=== PATIENT | male | born 1990 | race Caucasian/White ===

== ENCOUNTER 2018-08-09 00:11 | Emergency (ER) | payer OTHER ==
[2018-08-09 00:15] VITALS: TEMP 98.2
--- NOTE | 2018-08-09 00:40 | XR ---
EXAMINATION TYPE: XR hand complete RT DATE OF EXAM: 08/09/2018 COMPARISON: 10/30/2013 HISTORY: Hand injury and pain TECHNIQUE: 3 views. FINDINGS: There is thickening of the fourth and fifth metacarpals related to old healed fractures. I see no acu te fracture nor dislocation. Joint spaces are fairly normal. There are no erosions. IMPRESSION: No acute abnormality of the right hand. No change.
[2018-08-09 00:52] VITALS: BP 132/82; PULSE 78; RESP 20
--- NOTE | 2018-08-09 01:57 | ED ---
Upper Extremity HPI - General Chief Complaint: Extremity Injury, Upper Stated Complaint: R Hand Injury Time Seen by Provider: 08/09/18 01:34 Source: patient Mode of arrival: ambulatory Limitations: no limitations - History of Present Illness Initial Comments: This patient is 28-year-old man who presents to be evaluated for injury to the right hand. The patient states that he had punched a wall a few hours ago and accidentally struck a stud. Patient states pain and swelling to the dorsum of the right hand, particularly the fifth metacarpal. He denies loss of the range of motion or any weakness or numbness. Complaint: Injury to:: right, hand Onset/Timin -: hour(s) Other Injuries: none Handedness: right Place: home Improves With: none Worsens With: none Context: direct blow Associated Symptoms: denies other symptoms - Related Data Allergies Allergy/AdvReac Type Severity Reaction Status Date / Time cefaclor [From Ceclor] Allergy Unknown Verified 08/09/18 00:15 Childhood Review of Systems ROS Statement: Those systems with pertinent positive or pertinent negative responses have been documented in the HPI. ROS Other: All systems not noted in ROS Statement are negative. Constitutional: Denies: fever, weakness Musculoskeletal: Reports: joint swelling, arthralgia Skin: Denies: lesions Neurological: Denies: headache, numbness, paresthesias Past Medical History Past Medical History: No Reported History History of Any Multi-Drug Resistant Organisms: None Reported Past Surgical History: No Surgical Hx Reported Past Psychological History: No Psychological Hx Reported Smoking Status: Current every day smoker Past Alcohol Use History: Occasional Past Drug Use History: None Reported General Exam Limitations: no limitations General appearance: alert, in no apparent distress Head exam: Present: atraumatic, normocephalic, other (The patient does have an approximately 1 cm diameter mobile, rubbery, nontender nodule at the left temporal area of the scalp. No overlying evidence of infection, including no warmth, erythema or drainage.) Right Forearm Wrist exam: Present: normal inspection, full ROM. Absent: tenderness, swelling Hand Wrist exam: Present: full ROM, swelling, abrasion. Absent: tenderness, laceration, ecchymosis, deformity, crepitus, dislocation, erythema, amputation, nail avulsion, subungual hematoma Neuro motor exam: Present: wrist extension intact, thumb opposition intact, thumb IP flexion intact, fingers 2-5 abduction intact Neurosensory exam: Present: 2-point discrimination, radial nerve intact, ulnar nerve intact, median nerve intact Vascular: Present: normal capillary refill Course Vital Signs 08/09/18 08/09/18 00:12 00:48 Temperature 98.2 F Pulse Rate 89 78 Respiratory 16 20 Rate Blood Pressure 126/76 132/82 O2 Sat by Pulse 99 97 Oximetry Disposition Clinical Impression: Contusion of hand, right, Lipoma Disposition: HOME SELF-CARE Condition: Good Instructions: Hand Sprain (ED), Lipoma (ED) Is patient prescribed a controlled substance at d/c from ED?: No Referrals: None,Stated [Primary Care Provider] - 1-2 days
== END 2018-08-09 02:11 | disposition home or self-care (01) ==
LOC: EC 00:11
DX: S60.221A Contusion of right hand, initial encounter (principal); D17.9 Benign lipomatous neoplasm, unspecified; F17.200 Nicotine dependence, unspecified, uncomplicated; Z88.1 Allergy status to other antibiotic agents; W22.01XA Walked into wall, initial encounter
CPT/HCPCS: 99283

== ENCOUNTER 2019-09-01 13:50 | Emergency (ER) | payer SELFPAY ==
[2019-09-01 13:56] VITALS: BP 123/84; PULSE 98; RESP 20; TEMP 98.4
--- NOTE | 2019-09-01 14:23 | XR ---
EXAMINATION TYPE: XR chest 2V DATE OF EXAM: 09/01/2019 COMPARISON: Prior chest 05/08/2012 HISTORY: Cough and congestion TECHNIQUE: Frontal and lateral views of the chest are obtained. FINDINGS: There is no focal air space opacity, pleural effusion, or pneumothorax seen. The cardiac silhouette size is within normal limits. The osseous structures are intact. There is bronchial wall thickening. IMPRESSION: Correlate for bronchitis, follow-up as indicated.
--- NOTE | 2019-09-01 15:09 | ED ---
ENT HPI - General Chief complaint: ENT Stated complaint: Sore throat Time Seen by Provider: 09/01/19 14:39 Source: patient Mode of arrival: ambulatory Limitations: no limitations - History of Present Illness Initial comments: 29-year-old male presenting for cough 2 weeks or throat one week. Patient states he has had a cough for over 2 weeks. He states he has had a sore throat for the past week. Patient states he is now beginning to lose his voice. Patient denies any history of fevers denies current fevers denies difficulty breathing or swallowing. Patient denies any neck pain or stiffness. Denies abdominal pain nausea vomiting diarrhea. Patient denies any history of splenectomy or immunocompromise such as diabetes. Patient denies any recent antibiotic use. Denies a chest pain source of breath remaining review of system negative. Upon arrival patient appears well signs of acute distress - Related Data Previous Rx's Medication Instructions Recorded predniSONE 40 mg PO DAILY 4 Days #8 tab 09/01/19 Allergies Allergy/AdvReac Type Severity Reaction Status Date / Time cefaclor [From Ceclor] Allergy Unknown Verified 09/01/19 13:56 Childhood Review of Systems ROS Statement: Those systems with pertinent positive or pertinent negative responses have been documented in the HPI. ROS Other: All systems not noted in ROS Statement are negative. Past Medical History Past Medical History: No Reported History History of Any Multi-Drug Resistant Organisms: None Reported Past Surgical History: Hernia Repair, Orthopedic Surgery Past Psychological History: No Psychological Hx Reported Smoking Status: Current every day smoker Past Alcohol Use History: Occasional Past Drug Use History: None Reported General Exam - General Exam Comments Initial Comments: General: The patient is awake and alert, in no distress, and does not appear acutely ill. Eye: +3 mm pupils are equal, round and reactive to light, extra-ocular movements are intact. No nystagmus. There is normal conjunctiva bilaterally. No signs of icterus. No photophobia Ears, nose, mouth and throat: There are moist mucous membranes and no oral lesions. Oropharynx was midlly erythematous there is no tonsillar enlargement exudates or lesions. Uvula midline. Tympanic membranes are not erythematous or is no effusions bulging or retraction. No tenderness to palpation of the mastoid. No anterior cervical lymphadenopathy. Rhinorrhea, clear and bilateral nares. No tripoding, no drooling. Neck: The neck is supple, there is no tenderness or JVD. No nuchal rigidity negative Brudzinski and Kernig Cardiovascular: There is a regular rate and rhythm. No murmur, rub or gallop is appreciated. Respiratory: Lungs are clear to auscultation, respirations are non-labored, breath sounds are equal. No wheezes, stridor, rales, or rhonchi. No retractions or abdominal breathing. Gastrointestinal: Soft, non-distended, non-tender abdomen without masses or organomegaly noted. There is no rebound or guarding present. Bowel sounds are unremarkable. Musculoskeletal: Normal ROM, no tenderness. Strength 5/5. Sensation intact. Radial pulses equal bilaterally 2+. Neurological: A&O x 3. CN II-XII intact grossly, There are no obvious motor or sensory deficits. Coordination appears grossly intact. Speech appears normal, no muffling. Skin: Skin is warm and dry and no rashes or lesions are noted. No extremity edema Psychiatric: Cooperative Limitations: no limitations Course Vital Signs 09/01/19 13:52 Temperature 98.4 F Pulse Rate 98 Respiratory 20 Rate Blood Pressure 123/84 O2 Sat by Pulse 96 Oximetry Medical Decision Making - Medical Decision Making 29yo male presented for sore throat cough congestion. Influenza negative. Rapid strep negative. Chest x-ray clear no focal consolidation with clear lung sounds. Patient does appear well nontoxic. Patient does have what appears clinically as laryngitis as there is hoarseness to his voice this does not appear to be consistent with hot potato voice and uvula is midline. At this time feel patient is stable for discharge with steroids voice rest and symptomatically treatment with use of Tylenol. Return parameters importance of primary care follow-up with discussed the patient was discharged appearing well - Lab Data Lab Results 09/01/19 09/01/19 Range/Units 13:58 13:58 Influenza Type A RNA Not Detected (Not Detectd) Influenza Type B (PCR) Not Detected (Not Detectd) Group A Strep Rapid Negative (Negative) Disposition Clinical Impression: Pharyngitis, Laryngitis Disposition: HOME SELF-CARE Condition: Good Instructions (If sedation given, give patient instructions): Laryngitis (ED) Additional Instructions: Please use medication as discussed. Please follow-up with family doctor in the next 2 days. Voice rest as discussed. Please return to emergency room if the symptoms increase or worsen or for any other concerns. Prescriptions: predniSONE 40 mg PO DAILY 4 Days #8 tab Is patient prescribed a controlled substance at d/c from ED?: No Referrals: None,Stated [Primary Care Provider] - 1-2 days [facility] [NON-STAFF] - 1-2 days Time of Disposition: 15:23
== END 2019-09-01 15:37 | disposition home or self-care (01) ==
LOC: EC 13:50
DX: J04.0 Acute laryngitis (principal); J02.9 Acute pharyngitis, unspecified; F17.200 Nicotine dependence, unspecified, uncomplicated; Z88.1 Allergy status to other antibiotic agents
CPT/HCPCS: 71046; 87081; 87430; 87502; 99283

== ENCOUNTER 2020-12-12 21:47 | Emergency (ER) | payer OTHER ==
--- NOTE | 2020-12-12 22:16 | XR ---
EXAMINATION TYPE: XR hand complete LT DATE OF EXAM: 12/12/2020 COMPARISON: NONE HISTORY: Pain. Punched a wall. TECHNIQUE: 3 views FINDINGS: There is no oblique fracture distal shaft of the fifth metacarpal. There is 50% offset. The re is no dislocation. The fingers are intact. IMPRESSION: Mildly displaced acute fracture of the fifth metacarpal.
[2020-12-12 22:26] VITALS: BP 122/83; PULSE 91; RESP 18; TEMP 98.8
[2020-12-12] MEDS ORDERED: ACET/COD 300 MG/30 MG STARTER PACK 6 TAB BTL PO STA (22:48)
--- NOTE | 2020-12-12 22:50 | ED ---
General Adult HPI - General Chief complaint: Extremity Injury, Upper Stated complaint: Lft hand injury Source: patient Mode of arrival: ambulatory Limitations: no limitations - History of Present Illness Initial comments: 30-year-old male presents to the emergency room for a chief complaint of left hand pain and patient reports that he punched a wall and hurt his left hand chicho ier today. States it is swollen and painful to move. She denies any other injuries. Denies any lacerations. Denies punching anyone.Patient has no other complaints at this time including shortness of breath, chest pain, abdominal pain, nausea or vomiting, headache, or visual changes. - Related Data Previous Rx's Medication Instructions Recorded predniSONE [Deltasone] 40 mg PO DAILY 4 Days #8 tab 09/01/19 Allergies Allergy/AdvReac Type Severity Reaction Status Date / Time cefaclor [From Ceclor] Allergy Unknown Verified 12/12/20 22:01 Childhood Review of Systems ROS Statement: Those systems with pertinent positive or pertinent negative responses have been documented in the HPI. ROS Other: All systems not noted in ROS Statement are negative. Past Medical History Past Medical History: No Reported History History of Any Multi-Drug Resistant Organisms: None Reported Past Surgical History: Hernia Repair, Orthopedic Surgery Past Psychological History: No Psychological Hx Reported Smoking Status: Current every day smoker Past Alcohol Use History: Occasional Past Drug Use History: None Reported General Exam Limitations: no limitations General appearance: alert, in no apparent distress Head exam: Present: atraumatic, normocephalic, normal inspection Eye exam: Present: normal appearance, PERRL, EOMI. Absent: scleral icterus, conjunctival injection, periorbital swelling ENT exam: Present: normal exam, mucous membranes moist Neck exam: Present: normal inspection, full ROM. Absent: tenderness, meningismus, lymphadenopathy Respiratory exam: Present: normal lung sounds bilaterally. Absent: respiratory distress, wheezes, rales, rhonchi, stridor Cardiovascular Exam: Present: regular rate, normal rhythm, normal heart sounds. Absent: systolic murmur, diastolic murmur, rubs, gallop, clicks GI/Abdominal exam: Present: soft, normal bowel sounds. Absent: distended, tenderness, guarding, rebound, rigid Extremities exam: Present: tenderness (Tenderness to the dorsal aspect of the fifth metacarpal area.), normal capillary refill (capillary refill less than 2 seconds, radial pulse 2+ in the left upper extremity.), joint swelling (She does of edema noted over the left fifth metacarpal.), other (Sensation intact in the left hand). Absent: full ROM (Patient has pain with flexion and extension of the left fifth digit.) Course Vital Signs 12/12/20 12/12/20 21:59 22:26 Temperature 98.3 F 98.8 F Pulse Rate 89 91 Respiratory 20 18 Rate Blood Pressure 122/86 122/83 O2 Sat by Pulse 96 98 Oximetry Procedures - Orthopedic Splinting/Casting Injury #1 Side: left Upper Extremity Injury Location: short arm Upper Extremity Immobilizer: ulnar gutter Additional Comments: Neurovascular status intact after splint applied Medical Decision Making - Medical Decision Making pt did have a mildly displaced acute fracture of the fifth metacarpal. There is 50% offset. Patient was splinted. Did attempt to apply pressure over this area to improve displacement. Discussed rice therapy and anti-inflammatories for pain. Follow-up with orthopedics, referral given. He will return here for any worsening symptoms. Disposition Clinical Impression: Closed fracture of 5th metacarpal Disposition: HOME SELF-CARE Condition: Good Instructions (If sedation given, give patient instructions): Boxer Fracture (ED) Additional Instructions: Please take Motrin and Tylenol for pain. If pain is severe take Tylenol [address] machinery while taking this. Please rest ice and elevate the left hand. Follow-up with orthopedics by calling tomorrow. Return to the emergency room for any worsening symptoms. Is patient prescribed a controlled substance at d/c from ED?: No Referrals: Kalli Young MD [Primary Care Provider] - 1-2 days Julio Wright DO [Doctor of Osteopathic Medicine] - 1-2 days Time of Disposition: 22:49
== END 2020-12-12 22:58 | disposition home or self-care (01) ==
LOC: EC 21:47
DX: S62.327A Displaced fracture of shaft of fifth metacarpal bone, left hand, initial encounter for closed fracture (principal); F17.200 Nicotine dependence, unspecified, uncomplicated; W22.8XXA Striking against or struck by other objects, initial encounter
CPT/HCPCS: 29125; 99283

== ENCOUNTER 2021-01-11 01:55 | Observation (INO) | payer OTHER ==
[2021-01-11] MEDS ORDERED: ONDANSETRON 4 MG/2 ML VIAL IVP STA (02:27)
[2021-01-11] MEDS ORDERED: HYDROmorphone 0.5 MG/0.5 ML SYRINGE IVP STA ×2 (02:27→03:28)
[2021-01-11] MEDS ORDERED: SODIUM CHLORIDE 0.9% 500 ML 500 ML IV STA (02:27)
--- NOTE | 2021-01-11 02:35 | ED ---
Abdominal Pain HPI - General Chief Complaint: Abdominal Pain Stated Complaint: Abd Pain Time Seen by Provider: 01/11/21 02:10 Source: patient Mode of arrival: ambulatory Limitations: no limitations - History of Present Illness MD Complaint: abdominal pain Onset/Timin -: hour(s) Location: diffuse Radiation: none Migration to: no migration Severity: severe Quality: other (Unable to characterize) Consistency: constant Improves With: nothing Worsens With: nothing Associated Symptoms: nausea, vomiting - Related Data Home Medications Medication Instructions Recorded Confirmed Escitalopram [Lexapro] 20 mg PO DAILY 01/11/21 01/11/21 QUEtiapine [SEROquel] 100 mg PO HS 01/11/21 01/11/21 Previous Rx's Medication Instructions Recorded Acetaminophen Tab [Tylenol] 650 mg PO Q6H #30 tab 01/12/21 Docusate [Colace] 100 mg PO BID #20 capsule 01/12/21 Ibuprofen [Motrin] 600 mg PO Q6HR PRN #40 tab 01/12/21 oxyCODONE HCL [OxyIR] 5 mg PO Q6H PRN 3 Days #10 tab 01/12/21 Allergies Allergy/AdvReac Type Severity Reaction Status Date / Time cefaclor [From Ceclor] Allergy Unknown Verified 01/11/21 09:11 Childhood Review of Systems ROS Statement: Those systems with pertinent positive or pertinent negative responses have been documented in the HPI. ROS Other: All systems not noted in ROS Statement are negative. Constitutional: Denies: fever, chills Respiratory: Denies: cough, dyspnea Cardiovascular: Denies: chest pain, edema, syncope Gastrointestinal: Reports: abdominal pain, nausea, vomiting. Denies: diarrhea, constipation Genitourinary: Denies: dysuria, frequency, hematuria, testicular pain, testicular mass Musculoskeletal: Denies: back pain Skin: Denies: rash Neurological: Denies: headache, weakness, numbness Past Medical History Past Medical History: No Reported History History of Any Multi-Drug Resistant Organisms: None Reported Past Surgical History: Hernia Repair, Orthopedic Surgery Past Psychological History: No Psychological Hx Reported Smoking Status: Current every day smoker Past Alcohol Use History: Occasional Past Drug Use History: None Reported - Past Family History Father Family Medical History: No Reported History Additional Family Medical History / Comment(s): Father is healthy Mother Family Medical History: No Reported History Additional Family Medical History / Comment(s): Mother is healthy General Exam Limitations: no limitations General appearance: alert, in distress Head exam: Present: atraumatic, normocephalic Eye exam: Present: normal appearance. Absent: scleral icterus, conjunctival injection Neck exam: Present: normal inspection Respiratory exam: Present: normal lung sounds bilaterally. Absent: respiratory distress, wheezes, rales, rhonchi, stridor Cardiovascular Exam: Present: regular rate, normal rhythm, normal heart sounds. Absent: systolic murmur, diastolic murmur, rubs, gallop GI/Abdominal exam: Present: soft, tenderness (There is mild tenderness to palpation across the upper abdomen. No rebound or guarding.), diminished bowel sounds. Absent: distended, guarding, rebound, rigid, mass, pulsatile mass Extremities exam: Present: normal inspection, normal capillary refill. Absent: pedal edema, calf tenderness Back exam: Present: normal inspection. Absent: CVA tenderness (R), CVA tenderness (L) Neurological exam: Present: alert Skin exam: Present: warm, dry, intact, normal color. Absent: rash Course Vital Signs 01/11/21 01/11/21 01/11/21 02:00 04:36 06:46 Temperature 98.6 F Pulse Rate 87 96 Respiratory 18 18 Rate Blood Pressure 129/84 132/91 114/80 O2 Sat by Pulse 96 96 Oximetry Medical Decision Making - Lab Data Result diagrams: 01/11/21 02:40 01/11/21 02:40 Lab Results 01/11/21 01/11/21 01/11/21 Range/Units 02:40 02:40 02:40 WBC 16.3 H (3.8-10.6) k/uL RBC 4.92 (4.30-5.90) m/uL Hgb 16.0 (13.0-17.5) gm/dL Hct 45.1 (39.0-53.0) % MCV 91.7 (80.0-100.0) fL MCH 32.5 (25.0-35.0) pg MCHC 35.4 (31.0-37.0) g/dL RDW 11.8 (11.5-15.5) % Plt Count 229 (150-450) k/uL MPV 6.6 Neutrophils % 84 % Lymphocytes % 9 % Monocytes % 5 % Eosinophils % 1 % Basophils % 0 % Neutrophils # 13.6 H (1.3-7.7) k/uL Lymphocytes # 1.4 (1.0-4.8) k/uL Monocytes # 0.8 (0-1.0) k/uL Eosinophils # 0.2 (0-0.7) k/uL Basophils # 0.0 (0-0.2) k/uL Sodium 139 (137-145) mmol/L Potassium 3.5 (3.5-5.1) mmol/L Chloride 103 (98-107) mmol/L Carbon Dioxide 25 (22-30) mmol/L Anion Gap 11 mmol/L BUN 13 (9-20) mg/dL Creatinine 0.85 (0.66-1.25) mg/dL Est GFR (CKD-EPI)AfAm >90 (>60 ml/min/1.73 sqM) Est GFR (CKD-EPI)NonAf >90 (>60 ml/min/1.73 sqM) Glucose 112 H (74-99) mg/dL Plasma Lactic Acid Amol (0.7-2.0) mmol/L Calcium 9.8 (8.4-10.2) mg/dL Total Bilirubin 1.0 (0.2-1.3) mg/dL AST 27 (17-59) U/L ALT 33 (4-49) U/L Alkaline Phosphatase 87 (38-126) U/L Total Protein 6.8 (6.3-8.2) g/dL Albumin 4.6 (3.5-5.0) g/dL Amylase 38 (30-110) U/L Lipase 32 (23-300) U/L Urine Color Yellow Urine Appearance Cloudy (Clear) Urine pH 6.0 (5.0-8.0) Ur Specific Garrison 1.021 (1.001-1.035) Urine Protein Negative (Negative) Urine Glucose (UA) Negative (Negative) Urine Ketones 2+ H (Negative) Urine Blood Negative (Negative) Urine Nitrite Negative (Negative) Urine Bilirubin Negative (Negative) Urine Urobilinogen <2.0 (<2.0) mg/dL Ur Leukocyte Esterase Negative (Negative) Urine RBC 2 (0-5) /hpf Urine WBC <1 (0-5) /hpf Amorphous Sediment Occasional H (None) /hpf Hyaline Casts 1 (0-2) /lpf Granular Casts 1 (0) /lpf Urine Mucus Rare H (None) /hpf 01/11/21 Range/Units 02:40 WBC (3.8-10.6) k/uL RBC (4.30-5.90) m/uL Hgb (13.0-17.5) gm/dL Hct (39.0-53.0) % MCV (80.0-100.0) fL MCH (25.0-35.0) pg MCHC (31.0-37.0) g/dL RDW (11.5-15.5) % Plt Count (150-450) k/uL MPV Neutrophils % % Lymphocytes % % Monocytes % % Eosinophils % % Basophils % % Neutrophils # (1.3-7.7) k/uL Lymphocytes # (1.0-4.8) k/uL Monocytes # (0-1.0) k/uL Eosinophils # (0-0.7) k/uL Basophils # (0-0.2) k/uL Sodium (137-145) mmol/L Potassium (3.5-5.1) mmol/L Chloride (98-107) mmol/L Carbon Dioxide (22-30) mmol/L Anion Gap mmol/L BUN (9-20) mg/dL Creatinine (0.66-1.25) mg/dL Est GFR (CKD-EPI)AfAm (>60 ml/min/1.73 sqM) Est GFR (CKD-EPI)NonAf (>60 ml/min/1.73 sqM) Glucose (74-99) mg/dL Plasma Lactic Acid Amol 0.7 (0.7-2.0) mmol/L Calcium (8.4-10.2) mg/dL Total Bilirubin (0.2-1.3) mg/dL AST (17-59) U/L ALT (4-49) U/L Alkaline Phosphatase (38-126) U/L Total Protein (6.3-8.2) g/dL Albumin (3.5-5.0) g/dL Amylase (30-110) U/L Lipase (23-300) U/L Urine Color Urine Appearance (Clear) Urine pH (5.0-8.0) Ur Specific Garrison (1.001-1.035) Urine Protein (Negative) Urine Glucose (UA) (Negative) Urine Ketones (Negative) Urine Blood (Negative) Urine Nitrite (Negative) Urine Bilirubin (Negative) Urine Urobilinogen (<2.0) mg/dL Ur Leukocyte Esterase (Negative) Urine RBC (0-5) /hpf Urine WBC (0-5) /hpf Amorphous Sediment (None) /hpf Hyaline Casts (0-2) /lpf Granular Casts (0) /lpf Urine Mucus (None) /hpf Disposition Clinical Impression: Acute appendicitis Disposition: ADMITTED IP TO THIS HOSP Condition: Good Is patient prescribed a controlled substance at d/c from ED?: No
[2021-01-11 02:51] LABS: Basophils % (A) 0 %; Eosinophils # (A) 0.2 k/uL (0-0.7); Eosinophils % (A) 1 %; HCT 45.1 % (39.0-53.0); Lymphocytes # (A) 1.4 k/uL (1.0-4.8); Lymphocytes % (A) 9 %; MCH 32.5 pg (25.0-35.0); MCHC 35.4 g/dL (31.0-37.0); MCV 91.7 fL (80.0-100.0); Mean Platelet Volume 6.6; Monocytes # (A) 0.8 k/uL (0-1.0); Monocytes % (A) 5 %; Neutrophils # (A) 13.6 k/uL (1.3-7.7); Neutrophils % (A) 84 %; Platelet Count 229 k/uL (150-450); RBC 4.92 m/uL (4.30-5.90); RDW 11.8 % (11.5-15.5); WBC 16.3 k/uL (3.8-10.6)
[2021-01-11 03:03] LABS: ALT 33 U/L (4-49); AST 27 U/L (17-59); African American GFR (CKD) >90 (>60 ml/min/1.73 sqM); Albumin 4.6 g/dL (3.5-5.0); Alkaline Phosphatase 87 U/L (38-126); Amylase 38 U/L (30-110); Anion Gap 11 mmol/L; Blood Urea Nitrogen 13 mg/dL (9-20); Calcium 9.8 mg/dL (8.4-10.2); Carbon Dioxide 25 mmol/L (22-30); Chloride 103 mmol/L (98-107); Glucose 112 mg/dL (74-99); Lipase 32 U/L (23-300); Non-African American GFR(CKD) >90 (>60 ml/min/1.73 sqM); Sodium 139 mmol/L (137-145); Total Protein 6.8 g/dL (6.3-8.2)
[2021-01-11 03:09] LABS: Potassium 3.5 mmol/L (3.5-5.1)
--- NOTE | 2021-01-11 03:31 | CT ---
EXAM: CT Abdomen and Pelvis Without Intravenous Contrast CLINICAL HISTORY: ITS.REASON CT Reason: abdominal pain TECHNIQUE: Axial computed tomography images of the abdomen and pelvis without intravenous contrast. CTDI is 12.9 mGy and DLP is 785.7 mGy-cm. This CT exam was performed using one or more of the following dose reduction techniques: automated exposure control, adjustment of the mA and/or kV according to patient size, and/or use of iterative reconstruction technique. COMPARISON: No relevant prior studies available. FINDINGS: Lung bases: Unremarkable. No mass. No consolidation. ABDOMEN: Liver: Unremarkable. Gallbladder and bile ducts: Unremarkable. No calcified stones. No ductal dilation. Pancreas: Unremarkable. No ductal dilation. Spleen: Unremarkable. No splenomegaly. Adrenals: Unremarkable. No mass. Kidneys and ureters: Nonobstructive 3 mm calyceal calculus in the lower pole the right kidney. No hydronephrosis or ureterolithiasis is seen Stomach and bowel: Unremarkable. No obstruction. No mucosal thickening. PELVIS: Appendix: 1.8 cm diameter appendix with slight surrounding inflammation characteristic of acute appendicitis. There is an appendicolith. No signs of rupture or abscess. Bladder: Unremarkable. No stones. Reproductive: Unremarkable as visualized. ABDOMEN and PELVIS: Intraperitoneal space: Unremarkable. No free air. No significant fluid collection. Bones/joints: No acute fracture. No dislocation. Soft tissues: Unremarkable. Vasculature: Unremarkable. No abdominal aortic aneurysm. Lymph nodes: Unremarkable. No enlarged lymph nodes. IMPRESSION: 1.8 cm diameter appendix with slight surrounding inflammation characteristic of acute appendicitis. There is an appendicolith. No signs of rupture or abscess. <MYCVCSECTION> Communications: 01/11/21 03:32 Call Doctor Regarding Appendicitis, called Dr. Costa on 01/11 03:32 (-04:00)
[2021-01-11 03:37] LABS: Amorphous Sediment,Urine Occasional /hpf; Appearance,Urine Cloudy (Clear); Bilirubin,Urine Negative (Negative); Blood,Urine Negative (Negative); Color,Urine Yellow; Glucose,Urine (UA) Negative (Negative); Granular Casts,Urine 1 /lpf (0); Hyaline Casts,Urine 1 /lpf (0-2); Ketones,Urine 2+ (Negative); Leukocyte Esterase,Urine Negative (Negative); Mucus,Urine Rare /hpf; Nitrite,Urine Negative (Negative); Protein,Urine Negative (Negative); RBC,Urine 2 /hpf (0-5); Specific Gravity,Urine 1.021 (1.001-1.035); Urobilinogen,Urine <2.0 mg/dL (<2.0); WBC,Urine <1 /hpf (0-5)
[2021-01-11] MEDS ORDERED: HYDROmorphone 0.5 MG/0.5 ML SYRINGE IVP PRN (04:13)
[2021-01-11] MEDS ORDERED: ONDANSETRON 4 MG/2 ML VIAL IVP PRN (04:13)
[2021-01-11] MEDS ORDERED: NALOXONE 0.4 MG/ML 1 ML VIAL IV PRN ×2 (04:13→11:45)
[2021-01-11] MEDS ORDERED: AMPICILLIN-SULBACTAM 3 GM in SODIUM CHLORIDE 0.9% 100 ML IVPB STA (04:13)
[2021-01-11] MEDS ORDERED: AMPICILLIN-SULBACTAM 3 GM in SODIUM CHLORIDE 0.9% 100 ML IVPB ONE (04:18)
[2021-01-11] MEDS: SODIUM CHLORIDE 0.9% 1,000 ML IV SCH ×4 (04:38→23:26)
[2021-01-11] MEDS: MORPHINE SULFATE 4 MG/ML SYRINGE IV PRN ×2 (04:38→13:03)
[2021-01-11] MEDS ORDERED: IV FLUID CONTINUATION 500 ML IV ONE (09:10)
[2021-01-11] MEDS ORDERED: ONDANSETRON 4 MG/2 ML VIAL IVP ONE (09:31)
[2021-01-11] MEDS ORDERED: DEXAMETHASONE SOD PHOSPHATE 4 MG/ML 1 ML VIAL IVP ONE (09:31)
[2021-01-11] MEDS ORDERED: HEPARIN SODIUM,PORCINE/PF 5,000 UNIT/0.5 ML SYRINGE SQ ONE (09:38)
[2021-01-11] MEDS ORDERED: fentaNYL (PF) 50 MCG/ML 2 ML AMP IVP ONE (09:40)
[2021-01-11] MEDS ORDERED: HEPARIN SODIUM,PORCINE 5,000 UNIT/ML 1 ML VIAL SQ ONE (09:45)
[2021-01-11] MEDS ORDERED: FAMOTIDINE 20 MG/2 ML VIAL IV ONE (09:52)
--- NOTE | 2021-01-11 10:29 | P.GSHP ---
History of Present Illness H&P Date: 01/11/21 Chief Complaint: Right lower quadrant pain Is a 30-year-old male who presents emergently last night with complaint of right lower quadrant pain. Patient's workup found evidence acute appendicitis. Past Medical History Past Medical History: No Reported History History of Any Multi-Drug Resistant Organisms: None Reported Past Surgical History: Hernia Repair, Orthopedic Surgery Past Psychological History: No Psychological Hx Reported Smoking Status: Current every day smoker Past Alcohol Use History: Occasional Past Drug Use History: None Reported Medications and Allergies Home Medications Medication Instructions Recorded Confirmed Type Escitalopram [Lexapro] 20 mg PO DAILY 01/11/21 01/11/21 History QUEtiapine [SEROquel] 100 mg PO HS 01/11/21 01/11/21 History Allergies Allergy/AdvReac Type Severity Reaction Status Date / Time cefaclor [From [facility]] Allergy Unknown Verified 01/11/21 09:11 Childhood Surgical - Exam Vital Signs Temp Pulse Resp BP Pulse Ox 98.6 F 87 18 129/84 96 01/11/21 02:00 01/11/21 02:00 01/11/21 02:00 01/11/21 02:00 01/11/21 02:00 - General well developed, well nourished, no distress - Eyes PERRL - ENT normal pinna - Neck no masses - Respiratory normal expansion - Cardiovascular Rhythm: regular - Abdomen Abdomen: soft, tender (Tender right lower quadrant) Results - Labs 01/11/21 02:40 01/11/21 02:40 Abnormal Lab Results - Last 24 Hours (Table) 01/11/21 01/11/21 01/11/21 Range/Units 02:40 02:40 02:40 WBC 16.3 H (3.8-10.6) k/uL Neutrophils # 13.6 H (1.3-7.7) k/uL Glucose 112 H (74-99) mg/dL Urine Ketones 2+ H (Negative) Amorphous Sediment Occasional H (None) /hpf Urine Mucus Rare H (None) /hpf Diabetes panel 01/11/21 Range/Units 02:40 Sodium 139 (137-145) mmol/L Potassium 3.5 (3.5-5.1) mmol/L Chloride 103 (98-107) mmol/L Carbon Dioxide 25 (22-30) mmol/L BUN 13 (9-20) mg/dL Creatinine 0.85 (0.66-1.25) mg/dL Glucose 112 H (74-99) mg/dL Calcium 9.8 (8.4-10.2) mg/dL AST 27 (17-59) U/L ALT 33 (4-49) U/L Alkaline Phosphatase 87 (38-126) U/L Total Protein 6.8 (6.3-8.2) g/dL Albumin 4.6 (3.5-5.0) g/dL Calcium panel 01/11/21 Range/Units 02:40 Calcium 9.8 (8.4-10.2) mg/dL Albumin 4.6 (3.5-5.0) g/dL Pituitary panel 01/11/21 Range/Units 02:40 Sodium 139 (137-145) mmol/L Potassium 3.5 (3.5-5.1) mmol/L Chloride 103 (98-107) mmol/L Carbon Dioxide 25 (22-30) mmol/L BUN 13 (9-20) mg/dL Creatinine 0.85 (0.66-1.25) mg/dL Glucose 112 H (74-99) mg/dL Calcium 9.8 (8.4-10.2) mg/dL Adrenal panel 01/11/21 Range/Units 02:40 Sodium 139 (137-145) mmol/L Potassium 3.5 (3.5-5.1) mmol/L Chloride 103 (98-107) mmol/L Carbon Dioxide 25 (22-30) mmol/L BUN 13 (9-20) mg/dL Creatinine 0.85 (0.66-1.25) mg/dL Glucose 112 H (74-99) mg/dL Calcium 9.8 (8.4-10.2) mg/dL Total Bilirubin 1.0 (0.2-1.3) mg/dL AST 27 (17-59) U/L ALT 33 (4-49) U/L Alkaline Phosphatase 87 (38-126) U/L Total Protein 6.8 (6.3-8.2) g/dL Albumin 4.6 (3.5-5.0) g/dL Assessment and Plan Plan: Acute incised. We'll perform laparoscopic appendectomy
[2021-01-11] MEDS ORDERED: MIDAZOLAM 2 MG/2 ML VIAL ONE (10:42)
[2021-01-11] MEDS ORDERED: fentaNYL (PF) 50 MCG/ML 2 ML AMP ONE (10:42)
[2021-01-11] MEDS ORDERED: NEOSTIGMINE 1 MG/ML 10 ML VIAL ONE (10:42)
[2021-01-11] MEDS ORDERED: SUCCINYLCHOLINE CHLORIDE 100 MG/5 ML SYR IV ONE (10:42)
[2021-01-11] MEDS ORDERED: PROPOFOL 10 MG/ML 20 ML VIAL IV ONE (10:42)
[2021-01-11] MEDS ORDERED: GLYCOPYRROLATE 0.2 MG/ML 2 ML VIAL ONE (10:42)
[2021-01-11] MEDS ORDERED: LIDOCAINE 1% INJ 10MG/ML (20 ML MDV) ONE (10:42)
[2021-01-11] MEDS ORDERED: ROCURONIUM 10 MG/ML (5 ML VIAL) IV ONE (10:42)
[2021-01-11] MEDS ORDERED: BUPIVACAIN-EPI 0.5%-1:200,000 30 ML VIAL SQ ONE ×2 (10:45→11:12)
[2021-01-11] MEDS ORDERED: LACTATED RINGERS 1,000 ML IV ONE ×2 (11:25→11:45)
--- NOTE | 2021-01-11 11:44 | P.OP ---
Date of Procedure: 01/11/21 Preoperative Diagnosis: Acute appendicitis Postoperative Diagnosis: Acute appendicitis Procedure(s) Performed: Laparoscopic appendectomy Anesthesia: YANET Surgeon: Davon Franco Estimated Blood Loss (ml): 5 Pathology: other (Appendix) Condition: stable Disposition: PACU Description of Procedure: The patient's placed on the operating table in the supine position. The patient received general anesthesia. The abdomen was prepped and draped in the usual sterile fashion. The skin was anesthetized 1% local Xylocaine at the trocar sites. Using an 11 blade the skin was incised at the umbilicus. The umbilicus was grasped with a Cropwell clamp and then a Veress needle was placed into the peritoneal cavity. Position of the Veress needle was confirmed with positive drop test. After adequate insufflation a 5 mm trocar was placed into the peritoneal cavity. The abdomen was further insufflated. And then the laparoscope was placed in the peritoneal cavity. Next a 5 mm trocar was placed in the midline suprapubic position. And then a 10 mm trocar was placed in the midline epigastric position. The patient was rotated with the right side up and in Trendelenburg. The appendix was visualized. The appendix appeared to be inflamed. The appendix was grasped and then using the Harmonic scissors the mesoappendix was divided. A PDS Endoloop was then placed around the base of the appendix. And then the appendix was divided using Harmonic scissors. The appendix was placed into an Endo Catch and brought out through the 10 mm trocar site. The abdomen was irrigated. There is no bleeding seen. The trochars withdrawn. The skin was closed interrupted 3-0 Monocryl suture. Dermabond dressing was applied. Patient was sent to recovery room in stable condition.
[2021-01-11] MEDS ORDERED: ACETAMINOPHEN TAB 325 MG TAB PO PRN (11:45)
[2021-01-11] MEDS: KETOROLAC 15 MG/ML 1 ML VIAL IVP SCH ×3 (11:55→23:24)
[2021-01-11] MEDS: ONDANSETRON 4 MG/2 ML VIAL IVP PRN ×2 (11:56→19:07)
[2021-01-11] MEDS ORDERED: HYDROmorphone 0.5 MG/0.5 ML SYRINGE IVP ONE (11:56)
[2021-01-11] MEDS: PANTOPRAZOLE 40 MG/10 ML VIAL IV SCH (12:48)
[2021-01-11] MEDS: ESCITALOPRAM 20 MG TAB PO SCH (16:00)
[2021-01-11] MEDS: HYDROcodone/APAP 5-325MG 1 EACH TAB PO PRN (19:06)
[2021-01-11] MEDS ORDERED: QUEtiapine 100 MG TAB PO SCH (21:00)
[2021-01-12] MEDS: HYDROcodone/APAP 5-325MG 1 EACH TAB PO PRN ×2 (04:11→09:53)
[2021-01-12] MEDS: KETOROLAC 15 MG/ML 1 ML VIAL IVP SCH ×2 (06:17→13:24)
[2021-01-12 07:49] VITALS: RESP 18
[2021-01-12] MEDS ORDERED: ENOXAPARIN 40 MG/0.4 ML SYRINGE SQ SCH (09:00)
[2021-01-12] MEDS: PANTOPRAZOLE 40 MG/10 ML VIAL IV SCH (09:24)
[2021-01-12] MEDS: ESCITALOPRAM 20 MG TAB PO SCH ×2 (09:24→09:26)
--- NOTE | 2021-01-12 12:58 | P.DS ---
Providers Date of admission: 01/11/21 04:13 Expected date of discharge: 01/12/21 Attending physician: Davon Franco Consults: 01/11/21 11:47 Consult Physician Routine Consulting Provider: Arnoldo Kaur Consult Reason/Comments: med manage Do you want consulting provider notified?: Yes Primary care physician: Hannah Mahan [facility] Course: This a 30-year-old male who was admitted to hospital appendicitis. Patient went laparoscopic appendectomy. Please see chart for details. Procedures: Laparoscopic appendectomy Patient Condition at Discharge: Good Plan - Discharge Summary Discharge Rx Participant: No New Discharge Prescriptions: New Docusate [Colace] 100 mg PO BID #20 capsule Ibuprofen [Motrin] 600 mg PO Q6HR PRN #40 tab PRN Reason: Pain oxyCODONE HCL [OxyIR] 5 mg PO Q6H PRN 3 Days #10 tab PRN Reason: Pain Acetaminophen Tab [Tylenol] 650 mg PO Q6H #30 tab No Action QUEtiapine [SEROquel] 100 mg PO HS Escitalopram [Lexapro] 20 mg PO DAILY Discharge Medication List Escitalopram [Lexapro] 20 mg PO DAILY 01/11/21 [History] QUEtiapine [SEROquel] 100 mg PO HS 01/11/21 [History] Acetaminophen Tab [Tylenol] 650 mg PO Q6H #30 tab 01/12/21 [Rx] Docusate [Colace] 100 mg PO BID #20 capsule 01/12/21 [Rx] Ibuprofen [Motrin] 600 mg PO Q6HR PRN #40 tab 01/12/21 [Rx] oxyCODONE HCL [OxyIR] 5 mg PO Q6H PRN 3 Days #10 tab 01/12/21 [Rx] Follow up Appointment(s)/Referral(s): Kalli Young MD [Primary Care Provider] - 1-2 days
[2021-01-12] MEDS: SODIUM CHLORIDE 0.9% 1,000 ML IV SCH (13:24)
--- NOTE | 2021-01-12 13:50 | P.CONS ---
History of Present Illness - Reason for Consult Consult date: 01/11/21 - History of Present Illness 30-year-old pleasant male came in with complaints of severe right lower quadrant abdominal pain found to have appendicitis and the CT patient underwent emergent appendectomy patient doesn't have any rupture patient is presently not on any antibiotics patient did receive preoperative antibiotics patient denied any fever chills but patient was shivering and shaking when I valid the patient has patient was hypotensive patient received IV fluids and the massive transfusion of IV fluids which the is making him cold and shivery. She didn't pass gas yet that didn't move his bowel get. Review of Systems REVIEW OF SYSTEMS: CONSTITUTIONAL: No fever, no malaise, no fatigue. HEENT: No recent visual problems or hearing problems. Denied any sore throat. CARDIOVASCULAR: No chest pain, orthopnea, PND, no palpitations, no syncope. PULMONARY: No shortness of breath, no cough, no hemoptysis. GASTROINTESTINAL: As mentioned in HPI NEUROLOGICAL: No headaches, no weakness, no numbness. HEMATOLOGICAL: Denies any bleeding or petechiae. GENITOURINARY: Denies any burning micturition, frequency, or urgency. MUSCULOSKELETAL/RHEUMATOLOGICAL: Denies any joint pain, swelling, or any muscle pain. ENDOCRINE: Denies any polyuria or polydipsia. The rest of the 14-point review of systems is negative. Past Medical History Past Medical History: No Reported History History of Any Multi-Drug Resistant Organisms: None Reported Past Surgical History: Hernia Repair, Orthopedic Surgery Additional Past Surgical History / Comment(s): Bilateral leg fractures with surgical repair, R inguinal hernia repair. Past Anesthesia/Blood Transfusion Reactions: No Reported Reaction Smoking Status: Current every day smoker, Light tobacco smoker - Past Family History Father Family Medical History: No Reported History Additional Family Medical History / Comment(s): Father is healthy Mother Family Medical History: No Reported History Additional Family Medical History / Comment(s): Mother is healthy Medications and Allergies Home Medications Medication Instructions Recorded Confirmed Type Escitalopram [Lexapro] 20 mg PO DAILY 01/11/21 01/11/21 History QUEtiapine [SEROquel] 100 mg PO HS 01/11/21 01/11/21 History Acetaminophen Tab [Tylenol] 650 mg PO Q6H #30 tab 01/12/21 Rx Docusate [Colace] 100 mg PO BID #20 capsule 01/12/21 Rx Ibuprofen [Motrin] 600 mg PO Q6HR PRN #40 tab 01/12/21 Rx oxyCODONE HCL [OxyIR] 5 mg PO Q6H PRN 3 Days #10 tab 01/12/21 Rx Allergies Allergy/AdvReac Type Severity Reaction Status Date / Time [facility] Allergy Unknown Verified 01/11/21 09:11 Childhood Physical Exam Vitals: Vital Signs Temp Pulse Pulse Resp BP Pulse Ox 01/12/21 08:00 18 01/12/21 07:00 97.6 F 94 18 109/68 94 L 01/12/21 02:00 98.9 F 100 17 100/53 96 01/11/21 20:00 98.5 F 138 H 18 99/53 93 L 01/11/21 16:55 110 H 108/62 01/11/21 16:00 102 H 14 143/96 98 01/11/21 15:53 115 H 14 137/87 96 01/11/21 15:48 97.9 F 124 H 14 76/30 92 L 01/11/21 15:00 97.5 F L 108 H 18 125/74 94 L Intake and Output 01/11/21 01/12/21 01/12/21 22:59 06:59 14:59 Intake Total 380 Balance 380 Intake: Oral 380 Other: Voiding Method Toilet Toilet Toilet # Voids 3 2 1 # Bowel Movements 1 PHYSICAL EXAMINATION: GENERAL: The patient is alert and oriented x3, not in any acute distress. Well developed, well nourished. HEENT: Pupils are round and equally reacting to light. EOMI. No scleral icterus. No conjunctival pallor. Normocephalic, atraumatic. No pharyngeal erythema. No t hyromegaly. CARDIOVASCULAR: S1 and S2 present. No murmurs, rubs, or gallops. PULMONARY: Chest is clear to auscultation, no wheezing or crackles. ABDOMEN: Soft, nontender, nondistended, normoactive bowel sounds. No palpable organomegaly. Surgical site areas appear to be clean MUSCULOSKELETAL: No joint swelling or deformity. EXTREMITIES: No cyanosis, clubbing, or pedal edema. NEUROLOGICAL: Gross neurological examination did not reveal any focal deficits. SKIN: No rashes. Results CBC & Chem 7: 01/11/21 02:40 01/11/21 02:40 Assessment and Plan Plan: - acute appendicitis: Status post appendectomy. Patient probably will not require any antibiotics. -Anxiety disorder -Nicotine use: Counseling was provided -DVT prophylaxis early ambulation
--- NOTE | 2021-01-12 13:51 | P.PN ---
Subjective She is clinically doing well the past gas had bowel movement abdominal pain significantly improved is being discharged today. Objective - Vital Signs Vital signs: Vital Signs Temp 97.6 F 01/12/21 07:00 Pulse 94 01/12/21 07:00 Resp 18 01/12/21 08:00 BP 109/68 01/12/21 07:00 Pulse Ox 94 L 01/12/21 07:00 Intake & Output 01/11/21 01/12/21 01/12/21 18:59 06:59 18:59 Intake Total 1280 380 Output Total 5 Balance 1275 380 Weight 92.986 kg Intake: IV 1100 Oral 180 380 Output: Estimated Blood Loss 5 Other: Voiding Method Toilet Toilet # Voids 1 2 1 # Bowel Movements 1 - Exam PHYSICAL EXAMINATION: GENERAL: The patient is alert and oriented x3, not in any acute distress. Well developed, well nourished. HEENT: Pupils are round and equally reacting to light. EOMI. No scleral icterus. No conjunctival pallor. Normocephalic, atraumatic. No pharyngeal erythema. No thyromegaly. CARDIOVASCULAR: S1 and S2 present. No murmurs, rubs, or gallops. PULMONARY: Chest is clear to auscultation, no wheezing or crackles. ABDOMEN: Soft, nontender, nondistended, normoactive bowel sounds. No palpable organomegaly. Surgical site areas appear to be clean MUSCULOSKELETAL: No joint swelling or deformity. EXTREMITIES: No cyanosis, clubbing, or pedal edema. NEUROLOGICAL: Gross neurological examination did not reveal any focal deficits. SKIN: No rashes. - Labs CBC & Chem 7: 01/11/21 02:40 01/11/21 02:40 Assessment and Plan Plan: - acute appendicitis: Status post appendectomy. Patient probably will not require any antibiotics. She is medically stable to be discharged today -Anxiety disorder -Nicotine use: Counseling was provided
[2021-01-12 14:27] VITALS: BP 119/85; PULSE 108; TEMP 98.4
[2021-01-13] MEDS ORDERED: PANTOPRAZOLE 40 MG TABLET PO SCH (07:30)
== END 2021-01-12 15:20 ==
LOC: EC 01:55 → 6NMEDSUR 04:13
PROVIDERS: ADMIT Surgery; ATTEND Surgery
DX: K35.80 Unspecified acute appendicitis (principal); Z20.822 Contact with and (suspected) exposure to COVID-19; Z88.1 Allergy status to other antibiotic agents; Z79.899 Other long term (current) drug therapy; F17.200 Nicotine dependence, unspecified, uncomplicated
CPT/HCPCS: 44970; 96361; 96366; 96375; 99285; 36415; 88304; 80053; 82150; 83605; 83690; 85025; 81001; 87635; 74176; G0378 ×2; J2250; J2270; J1644; J1100; J2710; J2405; J2001; J1650; J3010; J0295; J1885 ×2; J0330; J2704; C9113 ×2; J1170; 96374; 96376

== ENCOUNTER 2025-02-09 07:50 | Emergency (ER) | payer OTHER ==
--- NOTE | 2025-02-09 08:19 | ED ---
Abdominal Pain HPI - General Chief Complaint: Abdominal Pain Stated Complaint: Right side abd pain Time Seen by Provider: 02/09/25 08:15 Source: patient, RN notes reviewed Mode of arrival: ambulatory Limitations: no limitations - History of Present Illness Initial Comments: 34-year male presented the ER for evaluation of right flank/abdominal pain x 1 w [facility]. Patient reports he has been having progressively worsening sharp right lower quadrant pain with radiation to his right flank. Patient reports he did have 1 episode of emesis this morning. He denies any hematemesis, coffee-ground emesis or bilious emesis. Patient denies any fevers, chills, diarrhea. He reports his last normal bowel movement was yesterday. Patient denies any urinary complaints, abnormal penile discharge, scrotal pain/swelling/erythema. Patient states he did take a tramadol last night and did consume alcohol as well. Patient reports a history of an appendectomy twice and hernia repair. Denies history of kidney stones, diverticulitis, or ulcerative colitis or Crohn 's disease. He denies any rashes, dizziness, lightheadedness, chest pain, shortness of breath or peripheral edema - Related Data Home Medications Medication Instructions Recorded Confirmed Escitalopram [Lexapro] 20 mg PO DAILY 01/11/21 01/11/21 QUEtiapine [SEROquel] 100 mg PO HS 01/11/21 01/11/21 Previous Rx's Medication Instructions Recorded Acetaminophen Tab [Tylenol] 650 mg PO Q6H #30 tab 01/12/21 Docusate [Colace] 100 mg PO BID #20 capsule 01/12/21 Ibuprofen [Motrin] 600 mg PO Q6HR PRN #40 tab 01/12/21 oxyCODONE HCL [OxyIR] 5 mg PO Q6H PRN 3 Days #10 tab 01/12/21 Ketorolac [Toradol] 10 mg PO Q8HR #15 tab 02/09/25 Ondansetron Odt [Zofran Odt] 4 mg PO Q8HR PRN #10 tab 02/09/25 Tamsulosin [Flomax] 0.4 mg PO DAILY #7 cap 02/09/25 Allergies Allergy/AdvReac Type Severity Reaction Status Date / Time cefaclor [From Ceclor] Allergy Unknown Verified 02/09/25 08:01 Childhood Review of Systems ROS Statement: Those systems with pertinent positive or pertinent negative responses have been documented in the HPI. ROS Other: All systems not noted in ROS Statement are negative. Past Medical History Past Medical History: No Reported History History of Any Multi-Drug Resistant Organisms: None Reported Past Surgical History: Hernia Repair, Orthopedic Surgery Additional Past Surgical History / Comment(s): Bilateral leg fractures with surgical repair, R inguinal hernia repair. Past Anesthesia/Blood Transfusion Reactions: No Reported Reaction Past Psychological History: No Psychological Hx Reported Smoking Status: Current every day smoker Past Alcohol Use History: Occasional Past Drug Use History: None Reported - Past Family History Father Family Medical History: No Reported History Additional Family Medical History / Comment(s): Father is healthy Mother Family Medical History: No Reported History Additional Family Medical History / Comment(s): Mother is healthy General Exam Limitations: no limitations General appearance: alert, in no apparent distress Respiratory exam: Present: normal lung sounds bilaterally. Absent: respiratory distress, wheezes, rales, rhonchi, stridor Cardiovascular Exam: Present: regular rate, normal rhythm, normal heart sounds. Absent: systolic murmur, diastolic murmur, rubs, gallop, clicks GI/Abdominal exam: Present: soft, tenderness (RLQ), normal bowel sounds Back exam: Present: normal inspection, CVA tenderness (R) Neurological exam: Present: alert, oriented X3, CN II-XII intact Skin exam: Present: warm, dry, intact, normal color. Absent: rash Course Vital Signs 02/09/25 02/09/25 02/09/25 07:57 10:19 11:01 Temperature 97.6 F 98 F 98 F Pulse Rate 92 77 78 Respiratory 22 16 16 Rate Blood Pressure 129/76 114/74 118/76 O2 Sat by Pulse 98 98 98 Oximetry - Reevaluation(s) Reevaluation #1: 02/09/25 10:35 Case discussed with service correspondent urology, Dr. Zapata. He advised on pain management and close outpatient follow-up with urology in office Medical Decision Making - Medical Decision Making Was pt. sent in by a medical professional or institution (, PA, BROKE BEATER OPERATOR, urgent care, hospital, or longterm...) When possible be specific @ -No Did you speak to anyone other than the patient for history (EMS, parent, family, police, friend...)? What history was obtained from this source @ -No Did you review nursing and triage notes (agree or disagree)? Why? @ -I reviewed and agree with nursing and triage notes Were old charts reviewed (outside hosp., previous admission, EMS record, old EKG, old radiological studies, urgent care reports/EKG's, longterm records)? Report findings @ -No old charts were reviewed Differential Diagnosis (chest pain, altered mental status, abdominal pain women, abdominal pain men, vaginal bleeding, weakness, fever, dyspnea, syncope, headache, dizziness, GI bleed, back pain, seizure, CVA, palpatations, mental health, musculoskeletal)? @ -Differential Abdominal Pain Men:Appendicitis, cholecystitis, diverticulosis, ischemic bowel, pancreatitis, hepatitis, UTI, gastroenteritis, AAA, incarcerated hernia, bowel obstruction, constipation, inflammatory bowel, hepatitis, peptic ulcer disease, splenic infarction, perforated viscus, testicular torsion, this is not meant to be an all-inclusive list EKG interpreted by me (3pts min.). @ -As above X-rays interpreted by me (1pt min.). @ -None done CT interpreted by me (1pt min.). @ -CT abdomen pelvis for 7 mm stone in the proximal right ureter with mild obstructive uropathy. Mild hepatic steatosis. U/S interpreted by me (1pt. min.). @ -None done What testing was considered but not performed or refused? (CT, X-rays, U/S, labs)? Why? @ -None What meds were considered but not given or refused? Why? @ -None Did you discuss the management of the patient with other professionals (professionals i.e. , PA, BROKE BEATER OPERATOR, lab, RT, psych nurse, drug abuse social worker, tactical air defense controller, teacher, trust officer, manager case management)? Give summary @ -Case discussed with on-call urology, Dr. Zapata. He advised on close outpatient follow-up and patient discharged with analgesic medications Was smoking cessation discussed for >3mins.? @ -No Was critical care preformed (if so, how long)? @ -No Were there social determinants of health that impacted care today? How? (Homelessness, low income, unemployed, alcoholism, drug addiction, transportation, low edu. Level, literacy, decrease access to med. care, fpc, r ehab)? @ -No Was there de-escalation of care discussed even if they declined (Discuss DNR or withdrawal of care, Hospice)? DNR status @ -No What co-morbidities impacted this encounter? (DM, HTN, Smoking, COPD, CAD, Cancer, CVA, ARF, Chemo, Hep., AIDS, mental health diagnosis, sleep apnea, morbid obesity)? @ -None Was patient admitted / discharged? Hospital course, mention meds given and route, prescriptions, significant lab abnormalities, going to OR and other pertinent info. @ -Discharged. 34-year-old female presented to ER for evaluation of right- sided abdominal pain. Vital signs stable. Patient in no signs of acute distress nontoxic-appearing. Laboratory studies obtained unremarkable. Urinalysis is hemorrhagic with 68 RBCs and large blood. Given hematuria CT abdomen pelvis was obtained showing a 7 mm obstructing calculus in the proximal right ureter with mild obstructive uropathy. Patient provided with symptomatic treatment with IV fluids, Zofran, Toradol and Tylenol. Given duration of symptoms and size of calculus, case discussed with service correspondent urology, Dr. Zapata. He advised on discharging patient with analgesic medications and close outpatient follow-up in office. Upon reevaluation, patient educated on today's findings, all questions answered. Patient requesting Toradol prescription outpatient. Toradol, flomax and Zofran prescribed. Patient discharged with a Tylenol 3 starter pack for extreme pain. Advise close follow-up with urology, referral given. Strict return parameters discussed. Patient discharged in stable condition. Patient verbally expressed understanding agreement care plan. Case discussed with ED attending, Dr. Vazquez. Undiagnosed new problem with uncertain prognosis? @ -No Drug Therapy requiring intensive monitoring for toxicity (Heparin, Nitro, Insulin, Cardizem)? @ -No Were any procedures done? @ -No Diagnosis/symptom? @ -Obstructing ureterolithiasis Acute, or Chronic, or Acute on Chronic? @ -Acute Uncomplicated (without systemic symptoms) or Complicated (systemic symptoms)? @ -Uncomplicated Side effects of treatment? @ -No Exacerbation, Progression, or Severe Exacerbation? @ -No Poses a threat to life or bodily function? How? (Chest pain, USA, MS, pneumonia, PE, COPD, DKA, ARF, appy, cholecystitis, CVA, Diverticulitis, Homicidal, Suicidal, threat to staff... and all critical care pts) @ -No - Lab Data Result diagrams: 02/09/25 08:20 02/09/25 08:20 Lab Results 02/09/25 02/09/25 02/09/25 Range/Units 08:20 08:20 08:20 WBC 6.53 (4.50-10.00) 10*3/uL RBC 4.83 (4.40-5.60) 10*6/uL Hgb 15.7 (13.0-17.0) g/dL Hct 45.3 (39.6-50.0) % MCV 93.8 (80.0-97.0) fL MCH 32.5 H (27.0-32.0) pg MCHC 34.7 (32.0-37.0) g/dL Plt Count 304 (140-440) 10*3/uL MPV 8.9 L (9.5-12.2) fL Immature Gran % (Auto) 0.2 % Neutrophils % 52.8 % Lymphocytes % 33.2 % Monocytes % 9.3 % Eosinophils % 4.0 % Basophils % 0.5 % Immature Gran # 0.01 (0.00-0.04) 10*3/uL Neutrophils # 3.45 (1.80-7.70) 10*3/uL Lymphocytes # 2.17 (0.90-5.00) 10*3/uL Monocytes # 0.61 (0.20-1.00) 10*3/uL Eosinophils # 0.26 (0.04-0.35) 10*3/uL Basophils # 0.03 (0.00-0.10) 10*3/uL Sodium 143 (137-145) mmol/L Potassium 3.9 (3.5-5.1) mmol/L Chloride 106 (98-107) mmol/L Carbon Dioxide 26 (22-30) mmol/L Anion Gap 11 mmol/L BUN 11 (9-20) mg/dL Creatinine 1.07 (0.66-1.25) mg/dL Est GFR (CKD-EPI)AfAm >90 (>60 ml/min/1.73 sqM) Est GFR (CKD-EPI)NonAf >90 (>60 ml/min/1.73 sqM) Glucose 95 (74-99) mg/dL Plasma Lactic Acid Amol (0.7-2.0) mmol/L Calcium 9.2 (8.4-10.2) mg/dL Total Bilirubin 0.6 (0.2-1.3) mg/dL AST 33 (17-59) U/L ALT 35 (4-49) U/L Alkaline Phosphatase 76 (38-126) U/L Total Protein 7.1 (6.3-8.2) g/dL Albumin 4.7 (3.5-5.0) g/dL Amylase 39 (30-110) U/L Lipase 50 (23-300) U/L Urine Color Yellow Urine Appearance Cloudy (Clear) Urine pH 5.5 (5.0-8.0) Ur Specific [place] 1.026 (1.001-1.035) Urine Protein Trace H (Negative) Urine Glucose (UA) Negative (Negative) Urine Ketones Negative (Negative) Urine Blood Large H (Negative) Urine Nitrite Negative (Negative) Urine Bilirubin Negative (Negative) Urine Urobilinogen <2.0 (<2.0) mg/dL Ur Leukocyte Esterase Negative (Negative) Urine RBC 68 H (0-5) /hpf Urine WBC 9 H (0-5) /hpf Urine Mucus Many H (None) /hpf 06/24/25 Range/Units 08:20 WBC (4.50-10.00) 10*3/uL RBC (4.40-5.60) 10*6/uL Hgb (13.0-17.0) g/dL Hct (39.6-50.0) % MCV (80.0-97.0) fL MCH (27.0-32.0) pg MCHC (32.0-37.0) g/dL Plt Count (140-440) 10*3/uL MPV (9.5-12.2) fL Immature Gran % (Auto) % Neutrophils % % Lymphocytes % % Monocytes % % Eosinophils % % Basophils % % Immature Gran # (0.00-0.04) 10*3/uL Neutrophils # (1.80-7.70) 10*3/uL Lymphocytes # (0.90-5.00) 10*3/uL Monocytes # (0.20-1.00) 10*3/uL Eosinophils # (0.04-0.35) 10*3/uL Basophils # (0.00-0.10) 10*3/uL Sodium (137-145) mmol/L Potassium (3.5-5.1) mmol/L Chloride (98-107) mmol/L Carbon Dioxide (22-30) mmol/L Anion Gap mmol/L BUN (9-20) mg/dL Creatinine (0.66-1.25) mg/dL Est GFR (CKD-EPI)AfAm (>60 ml/min/1.73 sqM) Est GFR (CKD-EPI)NonAf (>60 ml/min/1.73 sqM) Glucose (74-99) mg/dL Plasma Lactic Acid Amol 1.6 (0.7-2.0) mmol/L Calcium (8.4-10.2) mg/dL Total Bilirubin (0.2-1.3) mg/dL AST (17-59) U/L ALT (4-49) U/L Alkaline Phosphatase (38-126) U/L Total Protein (6.3-8.2) g/dL Albumin (3.5-5.0) g/dL Amylase (30-110) U/L Lipase (23-300) U/L Urine Color Urine Appearance (Clear) Urine pH (5.0-8.0) Ur Specific [place] (1.001-1.035) Urine Protein (Negative) Urine Glucose (UA) (Negative) Urine Ketones (Negative) Urine Blood (Negative) Urine Nitrite (Negative) Urine Bilirubin (Negative) Urine Urobilinogen (<2.0) mg/dL Ur Leukocyte Esterase (Negative) Urine RBC (0-5) /hpf Urine WBC (0-5) /hpf Urine Mucus (None) /hpf - EKG Data -: EKG Interpreted by Me EKG Comments: EKG taken at 8: 24 showing a sinus rhythm. No ST segment elevations or depressions. No T wave inversions. Ventricular rate 71, NE interval 152, QRS d uration 89 QT/QTc 404/426 - Radiology Data Radiology results: report reviewed, image reviewed Disposition Clinical Impression: Kidney stone Disposition: HOME SELF-CARE Condition: Stable Instructions (If sedation given, give patient instructions): Kidney Stones (ED), How to Strain Your Urine (ED) Additional Instructions: Take medications as prescribed. Follow-up closely with urology in the next 2 to 3 days. Return to the ER for any new or worsening concerns. Prescriptions: Tamsulosin [Flomax] 0.4 mg PO DAILY #7 cap Ketorolac [Toradol] 10 mg PO Q8HR #15 tab Ondansetron Odt [Zofran Odt] 4 mg PO Q8HR PRN #10 tab PRN Reason: Nausea Is patient prescribed a controlled substance at d/c from ED?: No Referrals: None,Stated [Primary Care Provider] - 1-2 days Quincy Zapata MD [STAFF PHYSICIAN] - 1-2 days Time of Disposition: 10:41
[2025-02-09] MEDS: SODIUM CHLORIDE 0.9% 1,000 ML IV ONE (08:24)
[2025-02-09] MEDS: KETOROLAC 15 MG/ML 1 ML VIAL IVP STA ×2 (08:35→10:51)
[2025-02-09 08:37] LABS: Basophils # (A) 0.03 10*3/uL (0.00-0.10); Basophils % (A) 0.5 %; Eosinophils # (A) 0.26 10*3/uL (0.04-0.35); HCT 45.3 % (39.6-50.0); HGB 15.7 g/dL (13.0-17.0); Lymphocytes # (A) 2.17 10*3/uL (0.90-5.00); Lymphocytes % (A) 33.2 %; MCH 32.5 pg (27.0-32.0); MCHC 34.7 g/dL (32.0-37.0); MCV 93.8 fL (80.0-97.0); Mean Platelet Volume 8.9 fL (9.5-12.2); Monocytes # (A) 0.61 10*3/uL (0.20-1.00); Monocytes % (A) 9.3 %; Neutrophils # (A) 3.45 10*3/uL (1.80-7.70); Neutrophils % (A) 52.8 %; Platelet Count 304 10*3/uL (140-440); RBC 4.83 10*6/uL (4.40-5.60); RDW 11.8 % (11.5-14.5); WBC 6.53 10*3/uL (4.50-10.00)
[2025-02-09] MEDS: ONDANSETRON 4 MG/2 ML VIAL IVP STA (08:37)
[2025-02-09 08:46] LABS: Appearance,Urine Cloudy (Clear); Bilirubin,Urine Negative (Negative); Blood,Urine Large (Negative); Color,Urine Yellow; Glucose,Urine (UA) Negative (Negative); Ketones,Urine Negative (Negative); Leukocyte Esterase,Urine Negative (Negative); Mucus,Urine Many /hpf; Nitrite,Urine Negative (Negative); PH, Urine 5.5 (5.0-8.0); Protein,Urine Trace (Negative); RBC,Urine 68 /hpf (0-5); Specific Gravity,Urine 1.026 (1.001-1.035); Urobilinogen,Urine <2.0 mg/dL (<2.0); WBC,Urine 9 /hpf (0-5)
[2025-02-09 08:59] LABS: ALT 35 U/L (4-49); AST 33 U/L (17-59); African American GFR (CKD) >90 (>60 ml/min/1.73 sqM); Albumin 4.7 g/dL (3.5-5.0); Alkaline Phosphatase 76 U/L (38-126); Amylase 39 U/L (30-110); Anion Gap 11 mmol/L; Blood Urea Nitrogen 11 mg/dL (9-20); Calcium 9.2 mg/dL (8.4-10.2); Carbon Dioxide 26 mmol/L (22-30); Chloride 106 mmol/L (98-107); Glucose 95 mg/dL (74-99); Lipase 50 U/L (23-300); Non-African American GFR(CKD) >90 (>60 ml/min/1.73 sqM); Potassium 3.9 mmol/L (3.5-5.1); Sodium 143 mmol/L (137-145); Total Bilirubin 0.6 mg/dL (0.2-1.3); Total Protein 7.1 g/dL (6.3-8.2)
--- NOTE | 2025-02-09 10:05 | CT ---
EXAMINATION TYPE: CT abdomen pelvis wo con DATE OF EXAM: 02/09/2025 9:44 AM COMPARISON: 01/11/2021 CLINICAL INDICATION: Male, 34 years old with history of right flank pain hematuria TECHNIQUE: Axial CT abdomen pelvis wo con; Sagittal and coronal reformats were created on a [email or web address] workstation. CT DLP: 781.7 mGycm, Automated exposure control for dose reduction was used. FINDINGS: LOWER CHEST: Unremarkable ABDOMEN LIVER: Mildly diminished attenuation of the hepatic parenchyma. A couple subtle hypodensities right l iver lobe measuring up to 1.2 cm suggesting tiny hepatic cysts. GALLBLADDER AND BILE DUCTS: Unremarkable. PANCREAS: Unremarkable. SPLEEN: Inferior hilar splenules. Otherwise, unremarkable. ADRENAL GLANDS: Unremarkable. KIDNEYS AND URETERS: No nephrolithiasis. However, there is mild right-sided hydronephrosis with a 7 m m stone along the proximal right ureter. PELVIS BLADDER: No evidence for wall thickening or mass given limitations of exam. REPRODUCTIVE: Pelvic phleboliths. Prostate gland normal size 3.8 cm wide. No abnormal fluid collectio n in the pelvis. ABDOMEN & PELVIS STOMACH AND BOWEL: No evidence of bowel obstruction. Minimal scattered stool. No pericolonic inflamma tory change. PERITONEUM/RETROPERITONEUM: No evidence of pneumoperitoneum or free fluid. VASCULATURE: No evidence of aortic aneurysm. MUSCULOSKELETAL: No acute osseous abnormalities LYMPH NODES: No gross evidence for lymphadenopathy. SOFT TISSUE/ABDOMINAL WALL: Unremarkable IMPRESSION: 1. A 7 mm stone in the proximal right ureter with mild obstructive uropathy. 2. Mild hepatic steatosis. [facility], , 02/09/2025 10:03 AM
[2025-02-09 10:20] VITALS: RESP 16; TEMP 98
[2025-02-09] MEDS ORDERED: ACETAMINOPHEN TAB 325 MG TAB PO STA (10:22)
[2025-02-09] MEDS ORDERED: HYDROmorphone 0.5 MG/0.5 ML SYRINGE IVP STA (10:22)
[2025-02-09] MEDS: ACET/COD 300 MG/30 MG STARTER PACK 6 TAB BTL PO STA (11:00)
[2025-02-09 11:05] VITALS: BP 118/76; PULSE 78
== END 2025-02-09 11:05 | disposition home or self-care (01) ==
LOC: EC 07:50
DX: N20.2 Calculus of kidney with calculus of ureter (principal); F17.200 Nicotine dependence, unspecified, uncomplicated; Z88.1 Allergy status to other antibiotic agents
CPT/HCPCS: 36415; 93005; 80053; 82150; 83605; 83690; 85025; 81001; 74176; 99285; 96374; 96375; 96376; 96361; J2405; J1885

== ENCOUNTER 2025-02-25 09:41 | Day surgery (SDC) | payer OTHER ==
--- NOTE | 2025-02-25 06:48 | P.GSHP ---
History of Present Illness H&P Date: 02/25/25 Chief Complaint: Right renal colic The patient is a 34-year-old white male with no prior history of urolithiasis. On February 05, 2025 he experienced acute onset of right lower back and abdominal pain. CT scan on February 09 showed evidence of right hydronephrosis due to a 7 mm right proximal ureteral calculus. He has experienced associated nausea and vomiting. His pain has been controlled with Toradol. He was offered the options of medical expulsion therapy, extracorporal shockwave lithotripsy (ESWL), and ureteroscopic removal of the calculus. The pros, cons, and risks of each were reviewed in detail with the patient. He has chosen to undergo the latter. - Constitutional Constitutional: Denies chills, Denies fever - Gastrointestinal Gastrointestinal: Reports nausea - Genitourinary (Female) Genitourinary: Reports flank pain, Reports kidney stones, Denies dysuria, Denies hematuria Past Medical History Past Medical History: No Reported History Additional Past Medical History / Comment(s): kidney stone, History of Any Multi-Drug Resistant Organisms: None Reported Past Surgical History: Appendectomy, Hernia Repair, Orthopedic Surgery Additional Past Surgical History / Comment(s): Bilateral leg fractures with surgical repair, R inguinal hernia repair. Past Anesthesia/Blood Transfusion Reactions: No Reported Reaction Smoking Status: Current every day smoker - Past Family History Father Family Medical History: No Reported History Additional Family Medical History / Comment(s): Father is healthy Mother Family Medical History: No Reported History Additional Family Medical History / Comment(s): Mother is healthy Medications and Allergies Home Medications Medication Instructions Recorded Confirmed Type Ketorolac [Toradol] 10 mg PO Q8HR #15 tab 02/09/25 02/24/25 Rx traZODone HCL [Desyrel] 50 mg PO HS 02/24/25 02/24/25 History Allergies Allergy/AdvReac Type Severity Reaction Status Date / Time cefaclor [From Ceclor] Allergy Unknown Verified 02/24/25 10:52 Childhood Surgical - Exam - General well developed, well nourished, no distress - Respiratory normal respiratory effort - Genitourinary normal penis with no external lesions, testicles non-tender - Psychiatric oriented to time, oriented to person, oriented to place, speech is normal, memory intact Results - Imaging CT scan - abdomen: report reviewed, image reviewed Assessment and Plan (1) Calculus of ureter Status: Acute Code(s): N20.1 - CALCULUS OF URETER SNOMED Code(s): 51254043 Plan: Cystoscopy, right ureteroscopy with Holmium laser lithotripsy and possible stone basketing, right ureteral stent insertion. The procedure has been reviewed in detail with the patient. He has been made aware of potential risks, which include anesthesia, bleeding, infection, inability to remove the calculus, and ureteral injury.
--- NOTE | 2025-02-25 09:59 | XR ---
EXAMINATION TYPE: XR KUB DATE OF EXAM: 02/25/2025 COMPARISON: CT abdomen and pelvis 02/09/2025 HISTORY: N 20.1 right ureteral calculus. TECHNIQUE: Single supine KUB image of the abdomen is obtained FINDINGS: Small bowel demonstrates no evidence for dilatation or air fluid levels. Gas and fecal material is seen in non-distended colon. No convincing evidence for pneumoperitoneum. Unchanged position of 7 mm calculus within the right mid ureter at the L3 level. Multiple pelvic phle boliths redemonstrated. No definitive renal calculi. The lung bases are clear. The osseous structures are intact. IMPRESSION: Unchanged position of 7 mm calculus within the right mid ureter at the L3 level. [facility], , 02/25/2025 9:57 AM
[2025-02-25] MEDS: IV FLUID CONTINUATION 1,000 ML IV ONE (10:16)
[2025-02-25] MEDS ORDERED: fentaNYL (PF) 50 MCG/ML 2 ML AMP IVP PRN (10:26)
[2025-02-25] MEDS ORDERED: LIDOCAINE 1% (10MG/ML) FOR IV START INTRADERMA PRN (10:26)
[2025-02-25] MEDS ORDERED: MIDAZOLAM 2 MG/2 ML VIAL IV PRN (10:26)
[2025-02-25] MEDS: DEXAMETHASONE SOD PHOSPHATE 4 MG/ML 1 ML VIAL IV ONE (10:37)
[2025-02-25] MEDS: ONDANSETRON 4 MG/2 ML VIAL IVP ONE (10:37)
[2025-02-25] MEDS: LACTATED RINGERS 1,000 ML IV SCH (10:37)
[2025-02-25] MEDS ORDERED: LIDOCAINE 1% INJ 10MG/ML (20 ML MDV) ONE (12:24)
[2025-02-25] MEDS ORDERED: NEOSTIGMINE 1 MG/ML 10 ML VIAL ONE (12:24)
[2025-02-25] MEDS ORDERED: GLYCOPYRROLATE 0.2 MG/ML 2 ML VIAL ONE (12:24)
[2025-02-25] MEDS ORDERED: SUCCINYLCHOLINE CHLORIDE 200 MG/10 ML VIAL IV ONE (12:24)
[2025-02-25] MEDS ORDERED: KETOROLAC 15 MG/ML 1 ML VIAL ONE (12:24)
[2025-02-25] MEDS ORDERED: fentaNYL (PF) 50 MCG/ML 2 ML AMP ONE (12:24)
[2025-02-25] MEDS ORDERED: LIDOCAINE 4% LTA KIT (4 ML) TOPICAL ONE (12:24)
[2025-02-25] MEDS ORDERED: HYDROmorphone (PF) 1 MG/ML ONE (12:24)
[2025-02-25] MEDS ORDERED: MIDAZOLAM 2 MG/2 ML VIAL ONE (12:24)
[2025-02-25] MEDS ORDERED: ROCURONIUM 10 MG/ML (5 ML VIAL) IV ONE (12:24)
[2025-02-25] MEDS ORDERED: PROPOFOL 10 MG/ML 20 ML VIAL IV ONE (12:24)
--- NOTE | 2025-02-25 13:40 | P.OP ---
Date of Procedure: 02/25/25 Preoperative Diagnosis: Right ureteral calculus Postoperative Diagnosis: Same Procedure(s) Performed: Cystoscopy, right ureteroscopy with Holmium laser lithotripsy and stone basketing, right ureteral stent insertion Anesthesia: YANET Surgeon: Maurice Mcintyre Estimated Blood Loss (ml): 5 IV fluids (ml): 500 Pathology: other (Right ureteral calculus fragment, sent for chemical analysis) Condition: stable Disposition: PACU Indications for Procedure: The patient is a 34-year-old white male with no prior history of urolithiasis. On February 05, 2025 he experienced acute onset of right lower back and abdominal pain. CT scan on February 09 showed evidence of right hydronephrosis due to a 7 mm right proximal ureteral calculus. He has elected to undergo ureteroscopic removal of the calculus. Operative Findings: Impacted 7 mm right proximal ureteral calculus, successfully fragmented. Description of Procedure: The patient was taken to the operating room and placed in the dorsolithotomy position, with legs supported in [place] stirrups. The external genitalia was prepped and draped sterilely. The 30 lens was used to introduce the 21-Honduran Roa cystoscopic sheath through the urethra and into the bladder under direct vision. The prostatic urethra showed evidence of mild lateral lobe enlargement. The bladder was examined in its entirety. Both ureteral orifices were normal anatomic location and configuration, and clear urine effluxed from both. No tumors or foreign bodies were seen. A 0.038 inch Glidewire was passed through the cystoscope. The right ureteral orifice was cannulated, and the Glidewire was advanced up to the calculus. With some manipulation, it was possible to advance the Glidewire beyond the calculus and up to the renal pelvis. The cystoscope was removed, and an 11/13-Honduran ureteral access catheter was passed over the wire, up to the proximal ureter. The Roa mobilePeople flexible ureteroscope was then passed through the ureteral access catheter sheath, up to the stone. The calculus was noted to be impacted, with mild edema surrounding the calculus. The 272 micron Holmium laser probe was passed through the ureteroscope, and lithotripsy was performed. Pressurized irrigant was required in order to safely laser the calculus. As it began to fragment, the main calculus refluxed into an upper pole calyx. The ureteroscope was advanced and lithotripsy was completed within that calyx. Several of the larger calculus fragments were removed using a 1.9 Honduran 0 tip nitinol basket, but these fragments measured only 1 mm in size. The remaining fragments were dusted, and could no longer be seen on fluoroscopy. Ureteroscope was withdrawn under direct vision. Pullout ureteroscopy showed no evidence of ureteral trauma. The Glidewire was passed through the ureteroscope, which was removed along with the ureteral access catheter sheath. The Glidewire was then backloaded into the cystoscope, which was passed into the bladder. A 26 cm, 4.8 Honduran double-J ureteral stent was placed over the wire. Proper stent positioning was verified fluoroscopically and endoscopically. The bladder was emptied and the cystoscope removed. The patient tolerated the procedure well and was taken to the recovery room in stable condition. [facility] Report: Procedure Acuity: Semi-Urgent Stone Size and Location: 7 mm, right proximal ureter Ureteral Dilation: No Ureteral Access Sheath Used: Yes Stone Sent for Analysis: Yes All Stones/Fragments Were Removed with a Basket: No Complications: No Preoperative Antibiotics Given: Yes Stent Placed: Yes If Stent Placed, Was String Left Attached: No If Stent Placed, When is it to be Removed: 1 week Discharge Medications: Toradol, tamsulosin
[2025-02-25 13:54] VITALS: TEMP 97.9
--- NOTE | 2025-02-25 14:00 | FL ---
EXAMINATION TYPE: FL guidance operating room Intraoperative/procedural fluoroscopic services were pro vided. CLINICAL INDICATION:Male, 34 years old with history of RIGHT URETERAL CALCULUS; , [facility] FINDINGS: Fluoroscopic images demonstrating right ureteral stent placement. No radiographic evidence for compli cation. Total fluoroscopy time is 37 seconds. DAP: 0.18679 Gycm2 Please see the operative/procedural note for further details. [facility], , 02/25/2025 1:58 PM
[2025-02-25] MEDS: HYDROmorphone 0.5 MG/0.5 ML SYRINGE IVP PRN (14:08)
[2025-02-25] MEDS: HYDROcodone/APAP 5-325MG 1 EACH TAB PO STA (14:40)
[2025-02-25 14:57] VITALS: BP 132/87; PULSE 67; RESP 18
== END 2025-02-25 15:17 | disposition home or self-care (01) ==
LOC: OR 09:41
PROVIDERS: ATTEND Urology
DX: N13.2 Hydronephrosis with renal and ureteral calculous obstruction (principal); K21.9 Gastro-esophageal reflux disease without esophagitis; Z79.899 Other long term (current) drug therapy; Z88.1 Allergy status to other antibiotic agents; Z90.49 Acquired absence of other specified parts of digestive tract; Z87.891 Personal history of nicotine dependence
CPT/HCPCS: 52356; 82365; 74018; C1758 ×3; C1769 ×2; C1894; J2250; J0330; J1100; J2710; J0690; J2405; J2003; J3010; J1171 ×2; J1885; J2704; J1596